=== PATIENT | female | born 1995 | race Caucasian/White ===

== ENCOUNTER 2021-11-05 14:37 | Emergency (ER) | payer BC ==
[~2021-11-05] VITALS: Ht 170.2 cm; Wt 86.2 kg
--- NOTE | 2021-11-05 14:40 | NUR ---
BIB BOYFRIEND C/O [employer] FOR 3 WEEKS, REPORTS HAVING ONLY 2 BOWEL MOVEMENTS. +NAUSEA, - VOMITING. DENIES PAIN BUT HAS CRAMPING, ON SUBOXONE FOR OPIOID WITHDRAWAL FOR 21 DAYS. AAOX4, BREATHING EVEN AND UMLABORED, PULSES 2+ BILATERALLY. ON MONITOR. WILL CONTINUE TO MONITOR.
[2021-11-05] MEDS ORDERED: ONDANSETRON HCL/PF 4 MG/2 ML VIAL ONE (15:28)
[2021-11-05] MEDS ORDERED: IV NS 0.9% 1,000 ML IV ONE (15:30)
[2021-11-05] MEDS ORDERED: ONDANSETRON HCL/PF - ER 4 MG/2 ML VIAL IV ONE (15:30)
--- NOTE | 2021-11-05 15:38 | NUR ---
BLOOD SAMPLE OBTAINED AND SENT TO LAB
--- NOTE | 2021-11-05 15:41 | NUR ---
PT AMBULATED TO RESTROOM
[2021-11-05 15:52] LABS: BASOPHILS % (AUTO) 0.4 % (0.0-2.0); EOSINOPHILS % (AUTO) 4.1 % (0.0-6.0); HEMATOCRIT 39 % (33-45); LYMPHOCYTES % (AUTO) 24.1 % (20.0-44.0); MEAN CORPUSCULAR HGB CONC 33 g/dl (31.0-36.0); MEAN CORPUSCULAR VOLUME 92 fL (82-100); MONOCYTES # (AUTO) 0.7 K/uL (0.1-1.30); MONOCYTES % (AUTO) 8.2 % (2.0-12.0); NEUTROPHILS # (AUTO) 5.2 K/uL (1.8-8.9); NEUTROPHILS % (AUTO) 63.2 % (43.0-81.0); PLATELET COUNT (AUTO) 353 K/uL (150-450); RED BLOOD CELL COUNT(AUTO) 4.24 MIL/uL (4.0-5.2); WHITE BLOOD COUNT (AUTO) 8.2 K/uL (4.3-11.0)
--- NOTE | 2021-11-05 15:55 | NUR ---
PT SIGNED WAIVER. DENIES CHANCE OF . FIRST DAY OF LAST MENSTRUAL PERIOD 10/30/21
--- NOTE | 2021-11-05 15:58 | NUR ---
RADIOLOGY AT BEDSIDE
--- NOTE | 2021-11-05 16:00 | NUR ---
Note paola in ED - 11/05/21 at 1601 by KISHOR PT SIGNED WAIVER. DENIES CHANCE OF . FIRST DAY OF LAST MENSTRUAL PERIOD 10/30/21
[2021-11-05 16:10] LABS: CALCIUM, SERUM 8.6 mg/dL (8.5-10.1); CREATININE 0.7 mg/dL (0.6-1.3); POTASSIUM 4.6 mmol/L (3.5-5.1)
[2021-11-05 16:50] LABS: MAGNESIUM 2.4 mg/dL (1.8-2.4)
[2021-11-05] MEDS ORDERED: DOCU100C36 PO (17:27)
[2021-11-05] MEDS ORDERED: SENN-18 PO (17:27)
[2021-11-05] MEDS ORDERED: POLY17PO4 PO (17:27)
[2021-11-05] MEDS ORDERED: MAGNESIUM CITRATE 296 ML BOTTLE PO ONE (17:30)
[2021-11-05] MEDS ORDERED: PEG 3350/NA SULF,BICARB,CL/KCL 4,000 ML BOTTLE PO ONE (18:00)
--- NOTE | 2021-11-05 18:29 | NUR ---
MICHAEL BROUGHT TO HOME WITH INSTRUCTIONS ON HOW TO TAKE.
[2021-11-05 18:32] VITALS: BP 119/70
--- NOTE | 2021-11-05 18:32 | NUR ---
IV removed. Catheter intact and site benign. Pressure and 4x4 applied to site. No bleeding noted.Patient discharged to home in stable condition. Written and verbal after care instructions given. Patient verbalizes understanding of instruction.
== END 2021-11-05 18:33 | disposition home or self-care (01) ==
LOC: ER 14:55
DX: K59.03 Drug induced constipation (principal); T40.2X5A Adverse effect of other opioids, initial encounter; J45.909 Unspecified asthma, uncomplicated; Z88.6 Allergy status to analgesic agent; Z88.8 Allergy status to other drugs, medicaments and biological substances; Y92.89 Other specified places as the place of occurrence of the external cause
CPT/HCPCS: 99284; 96374; 96361; 74018; 85025; 80048; 83735; 84703; 36415; J2405 ×2; J7030